=== PATIENT | male | born 2000 | race Caucasian/White ===

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

== ENCOUNTER → 2022-02-11 | Outpatient (CLI) | payer OTHER ==
[~2022-02-11] MED LIST changes: +AMOX500C PO; +HYDR1TAB33 PO; +IBUP80TA PO; +LAMO100T80 PO; -LAMO10TA PO; +NORC1TAB7 PO; -PARO30TA PO; +PARO30TA3 PO; +PARO30TA65 PO; +PERI0.126 SSP
== END ==
LOC: M PLALAB 13:37
PROVIDERS: ATTEND Student in an Organized Health Care Education/Training Program
DX: G40.909 Epilepsy, unspecified, not intractable, without status epilepticus (principal)

== ENCOUNTER → 2023-01-31 | Outpatient (CLI) | payer OTHER ==
[~2023-01-31] MED LIST changes: -PAXI20TA29 PO; +PAXI20TA30 PO
[2023-01-31 17:11] LABS: HEMOGLOBIN 11.8 g/dl (13.5-17.5); MEAN CORPUSCULAR HEMOGLOBIN 23.7 pg (27.0-33.0); MEAN CORPUSCULAR HGB CONC 30.3 g/dl (32.0-36.5); MEAN CORPUSCULAR VOLUME 78.5 fl (80.0-96.0); PLATELET COUNT, AUTOMATED 238 10^3/uL (150-450); RED BLOOD COUNT 4.97 10^6/uL (4.30-6.10); WHITE BLOOD COUNT 8.2 10^3/uL (4.0-10.0)
[2023-01-31 17:42] LABS: IRON (FE) 39 UG/DL (65-175); TOTAL IRON BINDING CAPACITY 433 UG/DL (250-425)
[2023-01-31 17:50] LABS: ALBUMIN 3.8 G/DL (3.2-5.2); ALKALINE PHOSPHATASE 83 U/L (46-116); ALT/SGPT 21 U/L (7.0-40); AST/SGOT 20 U/L (<34); BILIRUBIN,TOTAL 0.4 MG/DL (0.3-1.2); BLOOD UREA NITROGEN 13 MG/DL (9-23); CALCIUM LEVEL 9.3 MG/DL (8.5-10.1); CARBON DIOXIDE LEVEL 28 MMOL/L (20-31); CHLORIDE LEVEL 104 MMOL/L (98-107); CREATININE FOR GFR 1.02 MG/DL (0.70-1.30); FOLATE 10.63 NG/ML (>5.4); GLOMERULAR FILTRATION RATE > 60.0 (>60); GLUCOSE, FASTING 81 MG/DL (60-100); POTASSIUM SERUM 4.1 MMOL/L (3.5-5.1); SODIUM LEVEL 139 MMOL/L (136-145); THYROID STIMULATING HORMONE 1.898 uIU/ML (0.55-4.78); TOTAL PROTEIN 7.1 G/DL (5.7-8.2); VITAMIN B12 LEVEL 258 PG/ML (211-911)
[2023-02-01 15:42] LABS: FERRITIN 2.3 NG/ML (10.5-307.3)
== END ==
LOC: M PLALAB 15:01
PROVIDERS: ATTEND Student in an Organized Health Care Education/Training Program
DX: R06.02 Shortness of breath (principal)

== ENCOUNTER 2023-07-21 13:09 | Inpatient (IN) | payer MEDICAID, OTHER ==
[~2023-07-21] VITALS: Ht 180.3 cm; Wt 85.5 kg
[2023-07-21] MEDS ORDERED: ARIP1TAB6 PO (13:21)
[2023-07-21] MEDS ORDERED: FAMO20TA5 PO (13:21)
[2023-07-21] MEDS ORDERED: PARO25TA11 PO (13:21)
[2023-07-21] MEDS ORDERED: LAMO200T3 PO (13:21)
[2023-07-21 16:40] LABS: HEMATOCRIT 35.9 % (42.0-52.0); HEMOGLOBIN 11.1 g/dl (13.5-17.5); MEAN CORPUSCULAR HEMOGLOBIN 25.3 pg (27.0-33.0); MEAN CORPUSCULAR HGB CONC 30.9 g/dl (32.0-36.5); MEAN CORPUSCULAR VOLUME 81.8 fl (80.0-96.0); PLATELET COUNT, AUTOMATED 243 10^3/uL (150-450); RED BLOOD COUNT 4.39 10^6/uL (4.30-6.10)
[2023-07-21 17:09] LABS: ETHYL ALCOHOL (ETHANOL) < 0.003 % (0.000-0.010)
[2023-07-21 17:12] LABS: ACETAMINOPHEN LEVEL < 2.0 UG/ML (10.0-20.0); ALBUMIN 3.6 G/DL (3.2-5.2); ALKALINE PHOSPHATASE 88 U/L (46-116); ALT/SGPT 17 U/L (7.0-40); AST/SGOT 14 U/L (<34); BILIRUBIN,DIRECT < 0.1 MG/DL (<0.4); BILIRUBIN,TOTAL 0.2 MG/DL (0.3-1.2); BLOOD UREA NITROGEN 13 MG/DL (9-23); CARBON DIOXIDE LEVEL 28 MMOL/L (20-31); CHLORIDE LEVEL 105 MMOL/L (98-107); CREATININE FOR GFR 1.01 MG/DL (0.70-1.30); GLOMERULAR FILTRATION RATE > 60.0 (>60); GLUCOSE, FASTING 90 MG/DL (60-100); POTASSIUM SERUM 3.9 MMOL/L (3.5-5.1); SALICYLATE LEVEL < 3.0 MG/DL (<30); SODIUM LEVEL 140 MMOL/L (136-145); TOTAL PROTEIN 6.9 G/DL (5.7-8.2)
[2023-07-21 17:14] LABS: THYROID STIMULATING HORMONE 1.978 uIU/ML (0.55-4.78)
[2023-07-21 17:45] LABS: AMPHETAMINES LEVEL URINE NEGATIVE (NEGATIVE); BARBITURATES URINE NEGATIVE (NEGATIVE); COCAINE METABOLITE URINE NEGATIVE (NEGATIVE); PHENCYCLIDINE URINE NEGATIVE (NEGATIVE)
[2023-07-21 17:46] LABS: BENZODIAZEPINES URINE NEGATIVE (NEGATIVE); CANNABINOIDS URINE NEGATIVE (NEGATIVE); METHADONE URINE NEGATIVE (NEGATIVE); OPIATES URINE NEGATIVE (NEGATIVE)
[2023-07-21] MEDS ORDERED: MED REC IN PROGRESS XX SCH (17:50)
[2023-07-21] MEDS ORDERED: HOME MED LIST COMPLETE! XX SCH (18:00)
[2023-07-21] MEDS ORDERED: MAALOX 30 ML SUSP *UDC PO PRN (18:10)
[2023-07-21] MEDS ORDERED: diphenhydrAMINE 25MG CAP PO PRN (18:10)
[2023-07-21] MEDS ORDERED: MOM 30ML SUSPENSION UDC PO PRN (18:10)
[2023-07-21] MEDS ORDERED: traZODone 50 MG TAB PO PRN (18:10)
[2023-07-21] MEDS ORDERED: IBUPROFEN 400MG TAB PO PRN (18:10)
[2023-07-21] MEDS ORDERED: hydrOXYzine 50 MG TAB PO PRN (18:10)
[2023-07-21 22:05] VITALS: BP 132/65; O2SAT 98
[2023-07-21] MEDS: FAMOTIDINE 20 MG TAB PO SCH (22:21)
[2023-07-21] MEDS: lamoTRIgine 100MG TAB PO SCH (22:21)
[2023-07-21] MEDS: LACOSAMIDE 50 MG TAB (VIMPAT) PO SCH (22:22)
[2023-07-22 06:16] VITALS: BP 105/51; TEMP 96.5; O2SAT 99
[2023-07-22] MEDS: FAMOTIDINE 20 MG TAB PO SCH ×2 (08:16→20:32)
[2023-07-22] MEDS: PARoxetine 25MG CR TAB (PAXIL CR) PO SCH (08:16)
[2023-07-22] MEDS: LACOSAMIDE 50 MG TAB (VIMPAT) PO SCH ×2 (08:16→20:32)
[2023-07-22] MEDS: lamoTRIgine 100MG TAB PO SCH ×2 (08:16→20:32)
[2023-07-22 11:11] LABS: IRON (FE) 32 UG/DL (65-175); PERCENT SATURATION 7.7 % (19.7-50.0); TOTAL IRON BINDING CAPACITY 414 UG/DL (250-425)
[2023-07-22 11:13] LABS: VITAMIN B12 LEVEL 321 PG/ML (211-911)
[2023-07-22 11:14] LABS: FERRITIN 3.5 NG/ML (10.5-307.3)
[2023-07-22 11:23] LABS: FOLATE 9.67 NG/ML (>5.4)
[2023-07-22] MEDS: FERROUS SULFATE 325MG TAB PO SCH (12:20)
[2023-07-22] MEDS: ASCORBIC ACID 500 MG TAB PO SCH (12:20)
[2023-07-22 16:41] VITALS: BP 115/62; TEMP 97.5; O2SAT 99
[2023-07-23 06:22] VITALS: BP 108/58; TEMP 97.4; O2SAT 95
[2023-07-23 07:10] LABS: CHOLESTEROL RISK RATIO 3.59 (<5); HDL CHOLESTEROL 43.9 MG/DL (>40); LDL CHOLESTEROL 101.9 MG/DL (<100); NON-HDL-C 114.1 MG/DL
[2023-07-23] MEDS: LACOSAMIDE 50 MG TAB (VIMPAT) PO SCH ×2 (08:47→20:58)
[2023-07-23] MEDS: FAMOTIDINE 20 MG TAB PO SCH ×2 (08:47→20:58)
[2023-07-23] MEDS: PARoxetine 25MG CR TAB (PAXIL CR) PO SCH (08:47)
[2023-07-23] MEDS: ARIPiprazole 10 MG TAB PO SCH (08:47)
[2023-07-23] MEDS: lamoTRIgine 100MG TAB PO SCH ×2 (08:47→20:58)
[2023-07-23 16:36] VITALS: BP 112/56; TEMP 97.7; O2SAT 100
[2023-07-24 05:49] VITALS: BP 103/54; TEMP 97.7; O2SAT 100
[2023-07-24] MEDS: LACOSAMIDE 50 MG TAB (VIMPAT) PO SCH ×2 (08:41→20:03)
[2023-07-24] MEDS: FERROUS SULFATE 325MG TAB PO SCH (08:41)
[2023-07-24] MEDS: lamoTRIgine 100MG TAB PO SCH ×2 (08:41→20:03)
[2023-07-24] MEDS: ASCORBIC ACID 500 MG TAB PO SCH (08:41)
[2023-07-24] MEDS: ARIPiprazole 10 MG TAB PO SCH (08:41)
[2023-07-24] MEDS: PARoxetine 25MG CR TAB (PAXIL CR) PO SCH (08:42)
[2023-07-24] MEDS: FAMOTIDINE 20 MG TAB PO SCH ×2 (08:43→20:03)
[2023-07-24] MEDS: ACETAMINOPHEN TAB 650MG DOSE (2X325MG) PO PRN (09:05)
[2023-07-24 17:59] VITALS: BP 117/56; TEMP 96.8; O2SAT 98
[2023-07-25 06:29] VITALS: BP 108/57; TEMP 97.4; O2SAT 98
[2023-07-25] MEDS: FAMOTIDINE 20 MG TAB PO SCH ×2 (08:26→20:04)
[2023-07-25] MEDS: LACOSAMIDE 50 MG TAB (VIMPAT) PO SCH ×2 (08:26→20:04)
[2023-07-25] MEDS: ARIPiprazole 10 MG TAB PO SCH (08:27)
[2023-07-25] MEDS: PARoxetine 25MG CR TAB (PAXIL CR) PO SCH (08:27)
[2023-07-25] MEDS: lamoTRIgine 100MG TAB PO SCH ×2 (08:27→20:04)
[2023-07-25] MEDS: ACETAMINOPHEN TAB 650MG DOSE (2X325MG) PO PRN (10:10)
[2023-07-25 19:05] VITALS: BP 131/70; TEMP 98.6
[2023-07-26 06:24] VITALS: BP 123/58; TEMP 96.5; O2SAT 100
[2023-07-26] MEDS: FAMOTIDINE 20 MG TAB PO SCH ×2 (08:50→20:28)
[2023-07-26] MEDS: ARIPiprazole 10 MG TAB PO SCH (08:50)
[2023-07-26] MEDS: PARoxetine 25MG CR TAB (PAXIL CR) PO SCH (08:50)
[2023-07-26] MEDS: ASCORBIC ACID 500 MG TAB PO SCH (08:50)
[2023-07-26] MEDS: FERROUS SULFATE 325MG TAB PO SCH (08:50)
[2023-07-26] MEDS: LACOSAMIDE 50 MG TAB (VIMPAT) PO SCH ×2 (08:51→20:28)
[2023-07-26] MEDS: lamoTRIgine 100MG TAB PO SCH ×2 (08:51→20:28)
[2023-07-26 18:13] VITALS: BP 116/60; TEMP 97.4; O2SAT 99
[2023-07-27 06:51] VITALS: BP 116/59; TEMP 97.6; O2SAT 96
[2023-07-27] MEDS: ARIPiprazole 10 MG TAB PO SCH (08:08)
[2023-07-27] MEDS: FAMOTIDINE 20 MG TAB PO SCH ×2 (08:08→20:10)
[2023-07-27] MEDS: LACOSAMIDE 50 MG TAB (VIMPAT) PO SCH ×2 (08:08→20:10)
[2023-07-27] MEDS: lamoTRIgine 100MG TAB PO SCH ×2 (08:09→20:10)
[2023-07-27] MEDS: PARoxetine 25MG CR TAB (PAXIL CR) PO SCH (08:09)
[2023-07-27 18:53] VITALS: BP 130/65; TEMP 97.8; O2SAT 99
[2023-07-28 06:50] VITALS: BP 128/62; TEMP 97.6; O2SAT 98
[2023-07-28] MEDS: ARIPiprazole 10 MG TAB PO SCH (08:55)
[2023-07-28] MEDS: LACOSAMIDE 50 MG TAB (VIMPAT) PO SCH ×2 (08:55→20:01)
[2023-07-28] MEDS: lamoTRIgine 100MG TAB PO SCH ×2 (08:55→20:01)
[2023-07-28] MEDS: ASCORBIC ACID 500 MG TAB PO SCH (08:55)
[2023-07-28] MEDS: PARoxetine 25MG CR TAB (PAXIL CR) PO SCH (08:55)
[2023-07-28] MEDS: FAMOTIDINE 20 MG TAB PO SCH ×2 (08:55→20:01)
[2023-07-28] MEDS: FERROUS SULFATE 325MG TAB PO SCH (08:55)
[2023-07-28 17:15] VITALS: BP 136/67; TEMP 97.1
[2023-07-29 06:04] VITALS: BP 104/58; TEMP 97.1; O2SAT 97
[2023-07-29] MEDS: PARoxetine 25MG CR TAB (PAXIL CR) PO SCH (08:09)
[2023-07-29] MEDS: lamoTRIgine 100MG TAB PO SCH ×2 (08:09→20:01)
[2023-07-29] MEDS: ARIPiprazole 10 MG TAB PO SCH (08:09)
[2023-07-29] MEDS: LACOSAMIDE 50 MG TAB (VIMPAT) PO SCH ×2 (08:09→20:01)
[2023-07-29] MEDS: FAMOTIDINE 20 MG TAB PO SCH ×2 (08:09→20:01)
[2023-07-29 15:29] VITALS: BP 126/65; TEMP 98.1; O2SAT 98
[2023-07-30 06:10] VITALS: BP 118/56; TEMP 98.2
[2023-07-30] MEDS: FERROUS SULFATE 325MG TAB PO SCH (08:11)
[2023-07-30] MEDS: ASCORBIC ACID 500 MG TAB PO SCH (08:11)
[2023-07-30] MEDS: lamoTRIgine 100MG TAB PO SCH (08:11)
[2023-07-30] MEDS: LACOSAMIDE 50 MG TAB (VIMPAT) PO SCH (08:11)
[2023-07-30] MEDS: ARIPiprazole 10 MG TAB PO SCH (08:11)
[2023-07-30] MEDS: FAMOTIDINE 20 MG TAB PO SCH (08:11)
[2023-07-30] MEDS: PARoxetine 25MG CR TAB (PAXIL CR) PO SCH (08:12)
[2023-07-30] MEDS ORDERED: FERR1TAB8 PO (09:01)
[2023-07-30] MEDS ORDERED: LAMO200T3 PO (09:01)
[2023-07-30] MEDS ORDERED: ASCO50TA PO (09:01)
[2023-07-30] MEDS ORDERED: ABIL10TA9 PO (09:01)
[2023-07-30] MEDS ORDERED: HYDR1TAB33 PO (09:01)
[2023-07-30] MEDS ORDERED: VIMP50TA3 PO (09:01)
[2023-07-30] MEDS ORDERED: FAMO20TA5 PO (09:01)
[2023-07-30] MEDS ORDERED: PARO25TA11 PO (09:01)
[2023-07-30] MEDS ORDERED: VIMP100T PO ×2 (09:07→11:35)
== END 2023-07-30 13:34 | disposition home or self-care (01) | DRG 751 ==
LOC: M ED 13:09 → M ED INP 18:09 → M PSY 21:33
PROVIDERS: ADMIT Psychiatry & Neurology Psychiatry; ATTEND Student in an Organized Health Care Education/Training Program
DX: F33.1 Major depressive disorder, recurrent, moderate (principal); F41.9 Anxiety disorder, unspecified; F84.0 Autistic disorder; R45.851 Suicidal ideations; G40.909 Epilepsy, unspecified, not intractable, without status epilepticus; D50.9 Iron deficiency anemia, unspecified; F17.290 Nicotine dependence, other tobacco product, uncomplicated; Z20.822 Contact with and (suspected) exposure to COVID-19; Z79.899 Other long term (current) drug therapy; Z91.030 Bee allergy status; Z83.3 Family history of diabetes mellitus; Z91.52 Personal history of nonsuicidal self-harm; Z91.51 Personal history of suicidal behavior

== ENCOUNTER → 2023-08-08 | Outpatient (CLI) | payer OTHER ==
[~2023-08-08] MED LIST changes: +ABIL10TA9 PO; +ARIP1TAB6 PO; +ASCO50TA PO; +FAMO20TA5 PO; +FERR1TAB8 PO; +LAMO200T3 PO; +PARO25TA11 PO; +VIMP100T PO
[2023-08-08 15:12] LABS: HEMATOCRIT 41.6 % (42.0-52.0); HEMOGLOBIN 12.3 g/dl (13.5-17.5); MEAN CORPUSCULAR HEMOGLOBIN 25.5 pg (27.0-33.0); MEAN CORPUSCULAR HGB CONC 29.6 g/dl (32.0-36.5); MEAN CORPUSCULAR VOLUME 86.1 fl (80.0-96.0); PLATELET COUNT, AUTOMATED 243 10^3/uL (150-450); RED BLOOD COUNT 4.83 10^6/uL (4.30-6.10); WHITE BLOOD COUNT 8.3 10^3/uL (4.0-10.0)
[2023-08-08 15:25] LABS: HEMOGLOBIN A1c 5.4 % (4.0-6.0)
[2023-08-08 15:40] LABS: TOTAL IRON BINDING CAPACITY 386 UG/DL (250-425)
[2023-08-08 15:41] LABS: ALBUMIN 3.7 G/DL (3.2-5.2); ALKALINE PHOSPHATASE 90 U/L (46-116); ALT/SGPT 19 U/L (7.0-40); AST/SGOT < 8 U/L (<34); BILIRUBIN,TOTAL 0.2 MG/DL (0.3-1.2); BLOOD UREA NITROGEN 9 MG/DL (9-23); CALCIUM LEVEL 9.3 MG/DL (8.5-10.1); CARBON DIOXIDE LEVEL 30 MMOL/L (20-31); CHLORIDE LEVEL 106 MMOL/L (98-107); CHOLESTEROL LEVEL 147 MG/DL (<200); CHOLESTEROL RISK RATIO 3.01 (<5); CREATININE FOR GFR 0.86 MG/DL (0.70-1.30); GLOMERULAR FILTRATION RATE > 60.0 (>60); GLUCOSE, FASTING 89 MG/DL (60-100); HDL CHOLESTEROL 48.7 MG/DL (>40); IRON (FE) 25 UG/DL (65-175); LDL CHOLESTEROL 76.1 MG/DL (<100); NON-HDL-C 98.3 MG/DL; PERCENT SATURATION 6.5 % (19.7-50.0); POTASSIUM SERUM 4.7 MMOL/L (3.5-5.1); SODIUM LEVEL 141 MMOL/L (136-145); TRIGLYCERIDES LEVEL 111 MG/DL (<150)
[2023-08-08 15:45] LABS: FREE T4 1.14 NG/DL (0.89-1.76)
[2023-08-08 15:46] LABS: FERRITIN 3.8 NG/ML (10.5-307.3); THYROID STIMULATING HORMONE 1.744 uIU/ML (0.55-4.78)
== END ==
LOC: M PLALAB 10:50
PROVIDERS: ATTEND Student in an Organized Health Care Education/Training Program
DX: D50.9 Iron deficiency anemia, unspecified (principal); Z13.1 Encounter for screening for diabetes mellitus; Z13.220 Encounter for screening for lipoid disorders; Z13.29 Encounter for screening for other suspected endocrine disorder

== ENCOUNTER → 2023-12-05 | Outpatient (REF) | payer OTHER | LOC: M SFHCPLAZ 09:47 | PROVIDERS: ATTEND Student in an Organized Health Care Education/Training Program | DX: K21.9 Gastro-esophageal reflux disease without esophagitis (principal) ==

== ENCOUNTER → 2024-08-12 | Outpatient (REF) | payer OTHER | LOC: M SFHCPLAZ 15:18 | PROVIDERS: ATTEND Internal Medicine Hematology | DX: Z79.899 Other long term (current) drug therapy (principal); D50.9 Iron deficiency anemia, unspecified; Z13.29 Encounter for screening for other suspected endocrine disorder; Z13.1 Encounter for screening for diabetes mellitus; Z13.220 Encounter for screening for lipoid disorders; K21.9 Gastro-esophageal reflux disease without esophagitis ==

== ENCOUNTER 2024-08-24 11:36 | Inpatient (IN) | payer MEDICAID, OTHER ==
[~2024-08-24] VITALS: Ht 180.3 cm; Wt 78.1 kg
[2024-08-24 12:31] LABS: HEMATOCRIT 41.9 % (42.0-52.0); HEMOGLOBIN 13.2 g/dl (13.5-17.5); MEAN CORPUSCULAR HEMOGLOBIN 26.5 pg (27.0-33.0); MEAN CORPUSCULAR HGB CONC 31.5 g/dl (32.0-36.5); MEAN CORPUSCULAR VOLUME 84.1 fl (80.0-96.0); PLATELET COUNT, AUTOMATED 213 10^3/uL (150-450); RED BLOOD COUNT 4.98 10^6/uL (4.30-6.10); WHITE BLOOD COUNT 7.2 10^3/uL (4.0-10.0)
[2024-08-24 12:49] LABS: AMPHETAMINES LEVEL URINE NEGATIVE (NEGATIVE); BARBITURATES URINE NEGATIVE (NEGATIVE); BENZODIAZEPINES URINE NEGATIVE (NEGATIVE); CANNABINOIDS URINE NEGATIVE (NEGATIVE); COCAINE METABOLITE URINE NEGATIVE (NEGATIVE); METHADONE URINE NEGATIVE (NEGATIVE); OPIATES URINE NEGATIVE (NEGATIVE); PHENCYCLIDINE URINE NEGATIVE (NEGATIVE)
[2024-08-24 12:51] LABS: ETHYL ALCOHOL (ETHANOL) 0.008 % (0.000-0.010)
[2024-08-24 12:53] LABS: ALBUMIN 3.8 G/DL (3.2-5.2); ALKALINE PHOSPHATASE 80 U/L (46-116); ALT/SGPT 24 U/L (7.0-40); AST/SGOT 29 U/L (<34); BILIRUBIN,DIRECT 0.1 MG/DL (<0.4); BILIRUBIN,TOTAL 0.4 MG/DL (0.3-1.2); BLOOD UREA NITROGEN 13 MG/DL (9-23); CALCIUM LEVEL 9.4 MG/DL (8.5-10.1); CARBON DIOXIDE LEVEL 26 MMOL/L (20-31); CHLORIDE LEVEL 109 MMOL/L (98-107); CREATININE FOR GFR 1.14 MG/DL (0.70-1.30); GLOMERULAR FILTRATION RATE > 60.0 (>60); GLUCOSE, FASTING 96 MG/DL (60-100); SALICYLATE LEVEL < 3.0 MG/DL (<30); SODIUM LEVEL 140 MMOL/L (136-145); TOTAL PROTEIN 7.2 G/DL (5.7-8.2)
[2024-08-24] MEDS ORDERED: FAMO20TA PO (12:57)
[2024-08-24] MEDS ORDERED: HYDR-3363 PO (12:57)
[2024-08-24] MEDS ORDERED: VIMP150T PO (12:57)
[2024-08-24] MEDS ORDERED: PARO25TA5 PO (12:57)
[2024-08-24] MEDS ORDERED: ARIP1TAB PO (12:57)
[2024-08-24] MEDS ORDERED: ASCO500T PO (12:57)
[2024-08-24] MEDS ORDERED: FERR325T3 PO (12:57)
[2024-08-24] MEDS ORDERED: HOME MED LIST COMPLETE! XX SCH (13:00)
[2024-08-24] MEDS ORDERED: diphenhydrAMINE 25MG CAP PO PRN (13:25)
[2024-08-24] MEDS ORDERED: ACETAMINOPHEN TAB 650MG DOSE (2X325MG) PO PRN (13:25)
[2024-08-24] MEDS ORDERED: MOM 30ML SUSPENSION UDC PO PRN (13:25)
[2024-08-24] MEDS ORDERED: MAALOX 30 ML SUSP *UDC PO PRN (13:25)
[2024-08-24 14:58] VITALS: BP 110/56; TEMP 98.3; O2SAT 99
[2024-08-24] MEDS: LACOSAMIDE 50 MG TAB (VIMPAT) PO SCH (20:52)
[2024-08-24] MEDS: lamoTRIgine 100MG TAB PO SCH (20:52)
[2024-08-25 06:28] VITALS: BP 130/67; TEMP 98.3; O2SAT 100
[2024-08-25] MEDS: FAMOTIDINE 20 MG TAB PO SCH (10:01)
[2024-08-25] MEDS: ARIPiprazole 10 MG TAB PO SCH (10:02)
[2024-08-25] MEDS: PARoxetine 25MG CR TAB (PAXIL CR) PO SCH (13:22)
[2024-08-25] MEDS: FLUZONE VACCINE TRIVALENT PF(2024-25) 0.5ML SYRINGE IM.IMMUN ONE (13:29)
[2024-08-25 17:54] VITALS: BP 119/62; TEMP 97.3
[2024-08-26 06:08] VITALS: BP 103/60; TEMP 97.9; O2SAT 97
[2024-08-26] MEDS: IBUPROFEN 400MG TAB PO PRN (12:38)
[2024-08-26 15:14] VITALS: BP 132/64; TEMP 97.6; O2SAT 98
[2024-08-27 06:21] VITALS: BP 99/60; TEMP 97.2; O2SAT 99
[2024-08-27 14:58] VITALS: BP 116/60; TEMP 97.9; O2SAT 98
[2024-08-28 15:16] VITALS: BP 113/62; TEMP 97.6; O2SAT 100
[2024-08-28] MEDS: traZODone 50 MG TAB PO PRN (20:23)
[2024-08-29 07:02] VITALS: BP 126/72; TEMP 97; O2SAT 97
[2024-08-29 16:10] VITALS: BP 114/67; TEMP 97.4; O2SAT 100
[2024-08-30 06:20] VITALS: BP 122/56; TEMP 98.4; O2SAT 100
== END 2024-08-30 14:08 | disposition home or self-care (01) | DRG 754 ==
LOC: M ED 11:36 → M ED INP 13:23 → M PSY 14:35
PROVIDERS: ADMIT Psychiatry & Neurology Psychiatry; ATTEND Psychiatry & Neurology Psychiatry
DX: F32.9 Major depressive disorder, single episode, unspecified (principal); G40.909 Epilepsy, unspecified, not intractable, without status epilepticus; R45.851 Suicidal ideations; F41.9 Anxiety disorder, unspecified; D50.9 Iron deficiency anemia, unspecified; F84.0 Autistic disorder; Z63.8 Other specified problems related to primary support group; Z81.3 Family history of other psychoactive substance abuse and dependence; Z81.8 Family history of other mental and behavioral disorders; Z79.899 Other long term (current) drug therapy; Z91.030 Bee allergy status

== ENCOUNTER → 2024-11-09 | Outpatient (CLI) | payer OTHER ==
[~2024-11-09] MED LIST changes: +ARIP1TAB PO; +ASCO500T PO; +FAMO20TA PO; +FERR325T3 PO; +HYDR-3363 PO; +PARO25TA5 PO; +TRAZ-252 PO; +VIMP150T PO
[2024-11-09 18:14] LABS: BASO % 0.3 % (0.0-1.0); EOS # 0.2 10^3/uL (0.0-0.5); EOS % 2.6 % (0.0-3.0); HEMATOCRIT 44.6 % (42.0-52.0); HEMOGLOBIN 14.2 g/dl (13.5-17.5); LYMPH # 2.7 10^3/uL (1.5-5.0); LYMPH % 39.3 % (24.0-44.0); MEAN CORPUSCULAR HEMOGLOBIN 27.5 pg (27.0-33.0); MEAN CORPUSCULAR HGB CONC 31.8 g/dl (32.0-36.5); MEAN CORPUSCULAR VOLUME 86.4 fl (80.0-96.0); MONO # 0.5 10^3/uL (0.0-0.8); MONO % 6.8 % (2.0-8.0); NEUTROPHILS # 3.5 10^3/uL (1.5-8.5); NEUTROPHILS % 50.7 % (36.0-66.0); PLATELET COUNT, AUTOMATED 239 10^3/uL (150-450); RED BLOOD COUNT 5.16 10^6/uL (4.30-6.10)
[2024-11-09 18:53] LABS: HEMOGLOBIN A1c 5.2 % (4.0-6.0)
[2024-11-09 18:57] LABS: IRON (FE) 131 UG/DL (65-175)
[2024-11-09 18:59] LABS: ALBUMIN 3.8 G/DL (3.2-5.2); ALKALINE PHOSPHATASE 81 U/L (40-129); ALT/SGPT 27 U/L (7.0-40); AST/SGOT 19 U/L (<34); BILIRUBIN,TOTAL 0.5 MG/DL (0.3-1.2); BLOOD UREA NITROGEN 11 MG/DL (9-23); CALCIUM LEVEL 10.1 MG/DL (8.5-10.1); CARBON DIOXIDE LEVEL 30 MMOL/L (20-31); CHLORIDE LEVEL 106 MMOL/L (98-107); CHOLESTEROL LEVEL 196 MG/DL (<200); CHOLESTEROL RISK RATIO 3.51 (<5); CREATININE FOR GFR 0.92 MG/DL (0.70-1.30); FERRITIN 7.7 NG/ML (10.5-307.3); FREE T4 1.11 NG/DL (0.89-1.76); GLOMERULAR FILTRATION RATE > 60.0 (>60); GLUCOSE, FASTING 83 MG/DL (60-100); HDL CHOLESTEROL 55.7 MG/DL (>40); LDL CHOLESTEROL 125.3 MG/DL (<100); NON-HDL-C 140.3 MG/DL; PERCENT SATURATION 34.5 % (19.7-50.0); POTASSIUM SERUM 4.6 MMOL/L (3.5-5.1); SODIUM LEVEL 141 MMOL/L (136-145); THYROID STIMULATING HORMONE 0.921 uIU/ML (0.55-4.78); TOTAL IRON BINDING CAPACITY 380 UG/DL (250-425); TOTAL PROTEIN 7.5 G/DL (5.7-8.2); TRIGLYCERIDES LEVEL 75 MG/DL (<150)
== END ==
LOC: M PLALAB 14:58
DX: Z79.899 Other long term (current) drug therapy (principal); E61.1 Iron deficiency

== ENCOUNTER 2024-12-22 11:05 | Day surgery (SDC) | payer OTHER ==
[~2024-12-22] VITALS: Ht 180.3 cm; Wt 93.0 kg
[~2024-12-22 11:05] MED LIST changes: +ARIP10TA63 PO; +FAMO1TAB11 PO; +FERR325T19 PO; +LACO150T PO; +MIDA5SPR NS; +VITA500T9 PO
[2024-12-22] MEDS ORDERED: propofoL 200 MG/20 ML VIAL As Ordered ONE (12:06)
[2024-12-22] MEDS ORDERED: GLYCOPYRROLATE INJ 0.2 MG/ML 2 ML VIAL As Ordered ONE (12:06)
[2024-12-22 12:20] VITALS: TEMP 97.4
[2024-12-22] MEDS ORDERED: ONDANSETRON 4MG 2ML VIAL As Ordered ONE (13:01)
[2024-12-22 13:06] VITALS: BP 126/70; O2SAT 96
== END 2024-12-22 13:34 | disposition home or self-care (01) ==
LOC: M OPP 11:05
PROVIDERS: ATTEND Surgery
DX: D50.9 Iron deficiency anemia, unspecified (principal); K44.9 Diaphragmatic hernia without obstruction or gangrene; K21.00 Gastro-esophageal reflux disease with esophagitis, without bleeding; K29.70 Gastritis, unspecified, without bleeding; K30 Functional dyspepsia; Z91.030 Bee allergy status; Z88.8 Allergy status to other drugs, medicaments and biological substances; Z79.899 Other long term (current) drug therapy; R56.9 Unspecified convulsions
CPT/HCPCS: 43239; 45378; 88305; J1596; J2405

== ENCOUNTER → 2025-01-11 | Outpatient (REF) | payer OTHER | LOC: M SFHCPLAZ 19:44 | DX: G40.319 Generalized idiopathic epilepsy and epileptic syndromes, intractable, without status epilepticus (principal) ==

== ENCOUNTER 2025-01-26 19:11 | Emergency (ER) | payer MEDICAID, OTHER ==
[~2025-01-26] VITALS: Ht 180.3 cm; Wt 89.2 kg
[2025-01-26 20:05] LABS: HEMATOCRIT 46.5 % (42.0-52.0); MEAN CORPUSCULAR HEMOGLOBIN 27.5 pg (27.0-33.0); MEAN CORPUSCULAR HGB CONC 32.3 g/dl (32.0-36.5); MEAN CORPUSCULAR VOLUME 85.2 fl (80.0-96.0); PLATELET COUNT, AUTOMATED 232 10^3/uL (150-450); RED BLOOD COUNT 5.46 10^6/uL (4.30-6.10); WHITE BLOOD COUNT 7.5 10^3/uL (4.0-10.0)
[2025-01-26 20:27] LABS: AMPHETAMINES LEVEL URINE NEGATIVE (NEGATIVE); BARBITURATES URINE NEGATIVE (NEGATIVE); BENZODIAZEPINES URINE NEGATIVE (NEGATIVE); CANNABINOIDS URINE NEGATIVE (NEGATIVE); COCAINE METABOLITE URINE NEGATIVE (NEGATIVE); METHADONE URINE NEGATIVE (NEGATIVE); OPIATES URINE NEGATIVE (NEGATIVE); PHENCYCLIDINE URINE NEGATIVE (NEGATIVE)
[2025-01-26 20:30] LABS: ETHYL ALCOHOL (ETHANOL) < 0.003 % (0.000-0.010)
[2025-01-26 20:31] LABS: ALBUMIN 4.1 G/DL (3.2-5.2); ALKALINE PHOSPHATASE 79 U/L (40-129); ALT/SGPT 24 U/L (7.0-40); AST/SGOT 21 U/L (<34); BILIRUBIN,DIRECT 0.2 MG/DL (<0.4); BILIRUBIN,TOTAL 0.6 MG/DL (0.3-1.2); BLOOD UREA NITROGEN 12 MG/DL (9-23); CALCIUM LEVEL 9.8 MG/DL (8.5-10.1); CARBON DIOXIDE LEVEL 29 MMOL/L (20-31); CHLORIDE LEVEL 103 MMOL/L (98-107); CREATININE FOR GFR 0.83 MG/DL (0.70-1.30); GLOMERULAR FILTRATION RATE > 60.0 (>60); GLUCOSE, FASTING 92 MG/DL (60-100); POTASSIUM SERUM 4.3 MMOL/L (3.5-5.1); SODIUM LEVEL 141 MMOL/L (136-145); TOTAL PROTEIN 7.8 G/DL (5.7-8.2)
[2025-01-26 20:32] LABS: SALICYLATE LEVEL < 3.0 MG/DL (<30)
[2025-01-26] MEDS ORDERED: OMEP40CA5 PO (20:37)
[2025-01-26] MEDS ORDERED: HOME MED LIST COMPLETE! XX SCH (20:40)
[2025-01-27] MEDS: lamoTRIgine 100MG TAB PO SCH (00:02)
[2025-01-27] MEDS: LACOSAMIDE 50 MG TAB (VIMPAT) PO SCH (00:02)
[2025-01-27] MEDS: PARoxetine 25MG CR TAB (PAXIL CR) PO SCH (09:00)
[2025-01-27] MEDS: OMEPRAZOLE 20MG CAP PO SCH (09:43)
[2025-01-27] MEDS: FAMOTIDINE 20 MG TAB PO SCH (09:43)
[2025-01-27] MEDS: FERROUS SULFATE 325MG TAB PO SCH (09:43)
[2025-01-27] MEDS: ASCORBIC ACID 500 MG TAB PO SCH (09:43)
[2025-01-27 17:02] VITALS: BP 119/67; TEMP 97.1; O2SAT 98
== END 2025-01-27 17:00 | disposition home or self-care (01) ==
LOC: M ED 19:11
DX: F84.0 Autistic disorder (principal); G40.909 Epilepsy, unspecified, not intractable, without status epilepticus; D50.9 Iron deficiency anemia, unspecified; F32.A Depression, unspecified; Z88.8 Allergy status to other drugs, medicaments and biological substances; Z91.030 Bee allergy status; Z79.899 Other long term (current) drug therapy

== ENCOUNTER 2025-06-04 16:17 | Inpatient (IN) | payer OTHER ==
[~2025-06-04] VITALS: Ht 180.3 cm; Wt 87.5 kg
[~2025-06-04 16:17] MED LIST changes: +OMEP40CA5 PO
[2025-06-04] MEDS ORDERED: TRAZ-252 PO (16:29)
[2025-06-04 17:08] LABS: PLATELET COUNT, AUTOMATED 247 10^3/uL (150-450)
[2025-06-04 17:36] LABS: AMPHETAMINES LEVEL URINE NEGATIVE (NEGATIVE); BARBITURATES URINE NEGATIVE (NEGATIVE); BENZODIAZEPINES URINE NEGATIVE (NEGATIVE); CANNABINOIDS URINE NEGATIVE (NEGATIVE); COCAINE METABOLITE URINE NEGATIVE (NEGATIVE); METHADONE URINE NEGATIVE (NEGATIVE); OPIATES URINE NEGATIVE (NEGATIVE); PHENCYCLIDINE URINE NEGATIVE (NEGATIVE)
[2025-06-04 17:38] LABS: ETHYL ALCOHOL (ETHANOL) < 0.003 % (0.000-0.010)
[2025-06-04 17:40] LABS: ALT/SGPT 17 U/L (7.0-40); AST/SGOT 21 U/L (<34); CALCIUM LEVEL 9.5 MG/DL (8.5-10.1); CARBON DIOXIDE LEVEL 27 MMOL/L (20-31); CHLORIDE LEVEL 103 MMOL/L (98-107); CREATININE FOR GFR 0.96 MG/DL (0.70-1.30); GLOMERULAR FILTRATION RATE > 90.0 (>60); POTASSIUM SERUM 3.9 MMOL/L (3.5-5.1); SALICYLATE LEVEL < 3.0 MG/DL (<30); SODIUM LEVEL 143 MMOL/L (136-145)
[2025-06-04] MEDS ORDERED: IBUP200C25 PO ×2 (23:05)
[2025-06-04] MEDS ORDERED: HOME MED LIST COMPLETE! XX SCH (23:10)
[2025-06-04] MEDS ORDERED: PILL CUTTER 1 EACH XX ONE (23:15)
[2025-06-04] MEDS: traZODone 50 MG TAB PO ONE (23:19)
[2025-06-04] MEDS: PILL CUTTER 1 EACH XX PRN (23:19)
[2025-06-05] MEDS ORDERED: NICOTINE 14 MG/24 HR TRANSDERMAL TD SCH (09:00)
[2025-06-05] MEDS: LACOSAMIDE 50 MG TAB PO SCH (09:59)
[2025-06-05] MEDS: lamoTRIgine 100 MG TAB PO SCH (09:59)
[2025-06-05] MEDS: OMEPRAZOLE 20MG CAP PO SCH (09:59)
[2025-06-05] MEDS: PARoxetine 25MG CR TAB (PAXIL CR) PO SCH (10:30)
[2025-06-05] MEDS ORDERED: IBUPROFEN 400 MG TAB PO PRN (11:40)
[2025-06-05] MEDS ORDERED: OLANZapine 5 MG TAB PO PRN (11:40)
[2025-06-05] MEDS ORDERED: LORazepam 1 MG TAB PO PRN (11:40)
[2025-06-05] MEDS ORDERED: MAALOX 30 ML SUSP *UDC PO PRN (11:40)
[2025-06-05] MEDS ORDERED: MOM 30 ML SUSPENSION UDC PO PRN (11:40)
[2025-06-05] MEDS ORDERED: HALOPERIDOL 5 MG TAB PO PRN (11:40)
[2025-06-05 16:08] VITALS: BP 118/63; TEMP 97.4; O2SAT 99
[2025-06-05] MEDS: traZODone 50 MG TAB PO PRN (20:38)
[2025-06-05] MEDS ORDERED: traZODone 50 MG TAB PO SCH (21:00)
[2025-06-06 06:27] VITALS: BP 129/59; TEMP 97.4; O2SAT 100
[2025-06-06] MEDS: FERROUS SULFATE 325 MG TAB PO SCH (08:09)
[2025-06-06] MEDS: ASCORBIC ACID 500 MG TAB PO SCH (08:10)
[2025-06-06] MEDS ORDERED: PILL CUTTER 1 EACH XX PRN (13:15)
[2025-06-06 16:25] VITALS: BP 119/59; TEMP 98.1; O2SAT 98
[2025-06-06] MEDS: traZODone 50 MG TAB PO SCH (20:06)
[2025-06-07 06:34] VITALS: BP 104/54; TEMP 97.9; O2SAT 100
[2025-06-07] MEDS: LACOSAMIDE 50 MG TAB PO SCH (10:36)
[2025-06-07] MEDS: OMEPRAZOLE 20MG CAP PO SCH (10:36)
[2025-06-07] MEDS: lamoTRIgine 100 MG TAB PO SCH (10:37)
[2025-06-07] MEDS: PARoxetine 25MG CR TAB (PAXIL CR) PO SCH (10:55)
[2025-06-07 15:22] VITALS: BP 125/62; TEMP 98.3; O2SAT 99
[2025-06-07] MEDS: ACETAMINOPHEN 325 MG TAB PO PRN (20:47)
[2025-06-08 06:28] VITALS: BP 103/53; TEMP 97.1; O2SAT 99
[2025-06-08] MEDS: PARoxetine 25MG CR TAB (PAXIL CR) PO SCH (08:05)
[2025-06-08] MEDS ORDERED: LACO150T PO (08:10)
[2025-06-08] MEDS: CEPACOL LOZENGE PO PRN (15:23)
[2025-06-08 18:37] VITALS: BP 116/56; TEMP 97.4; O2SAT 96
[2025-06-09 06:19] VITALS: BP 127/60; TEMP 97.3; O2SAT 97
[2025-06-09 15:02] VITALS: BP 119/51; TEMP 97.9; O2SAT 99
[2025-06-10 06:56] VITALS: BP 132/76; TEMP 98; O2SAT 98
== END 2025-06-10 10:24 | disposition home or self-care (01) | DRG 754 ==
LOC: M ED 16:17 → M ED INP 06-05 11:37 → M PSY 06-05 14:06
PROVIDERS: ADMIT Internal Medicine; ATTEND Psychiatry & Neurology Psychiatry
DX: F32.9 Major depressive disorder, single episode, unspecified (principal); F79 Unspecified intellectual disabilities; F84.0 Autistic disorder; G40.909 Epilepsy, unspecified, not intractable, without status epilepticus; F41.9 Anxiety disorder, unspecified; D50.9 Iron deficiency anemia, unspecified; Z81.3 Family history of other psychoactive substance abuse and dependence; Z81.8 Family history of other mental and behavioral disorders; Z62.810 Personal history of physical and sexual abuse in childhood; Z62.811 Personal history of psychological abuse in childhood; Z91.52 Personal history of nonsuicidal self-harm; Z79.899 Other long term (current) drug therapy; Z56.4 Discord with boss and workmates

== ENCOUNTER → 2025-08-05 | Outpatient (CLI) | payer OTHER ==
[~2025-08-05] MED LIST changes: +IBUP200C25 PO; -LACO150T PO; +LACO150T9 PO
== END ==
LOC: M PLAIMG 15:33
DX: M25.561 Pain in right knee (principal)

== ENCOUNTER → 2025-09-02 | Outpatient (CLI) | payer OTHER | LOC: M PLARAD 14:11 | DX: R29.898 Other symptoms and signs involving the musculoskeletal system (principal) ==

== ENCOUNTER → 2025-10-11 | Outpatient (REF) | payer MEDICAID, OTHER ==
[2025-10-11 15:32] LABS: BASO # 0.0 10^3/uL (0.0-0.2); BASO % 0.4 % (0.0-1.0); EOS # 0.2 10^3/uL (0.0-0.5); EOS % 2.5 % (0.0-3.0); LYMPH # 2.8 10^3/uL (1.5-5.0); LYMPH % 34.7 % (24.0-44.0); MONO # 0.5 10^3/uL (0.0-0.8); MONO % 5.8 % (2.0-8.0); NEUTROPHILS # 4.6 10^3/uL (1.5-8.5); NEUTROPHILS % 56.5 % (36.0-66.0); PLATELET COUNT, AUTOMATED 219 10^3/uL (150-450)
[2025-10-11 15:50] LABS: ESTIMATED AVERAGE GLUCOSE 108.0 MG/DL (60-110)
[2025-10-11 20:58] LABS: CHOLESTEROL LEVEL 162.0 MG/DL (<200); CHOLESTEROL RISK RATIO 3.41 (<5); IRON (FE) 99.0 UG/DL (65-175); LDL CHOLESTEROL 90.3 MG/DL (<100); MAGNESIUM LEVEL 2.1 MG/DL (1.8-2.4); NON-HDL-C 114.5 MG/DL; PERCENT SATURATION 27.0 % (19.7-50.0); TRIGLYCERIDES LEVEL 121.0 MG/DL (<150)
[2025-10-11 22:25] LABS: VITAMIN B12 LEVEL 292.0 PG/ML (211-911)
== END ==
LOC: M SFHCPLAZ 13:58
PROVIDERS: ATTEND Family Medicine
DX: K21.9 Gastro-esophageal reflux disease without esophagitis (principal); D50.9 Iron deficiency anemia, unspecified; Z13.1 Encounter for screening for diabetes mellitus; Z78.9 Other specified health status